=== PATIENT | male | born 1950 | race Caucasian/White ===

== ENCOUNTER 2017-11-15 06:15 | Day surgery (SDC) | payer BC, OTHER ==
[2017-11-09 14:11] VITALS: BMI 23.8
[2017-11-15] MEDS ORDERED: PROPOFOL 20 ML ONE ×11 (07:03→10:26)
[2017-11-15] MEDS ORDERED: ePHEDrine SULFATE 50 MG/1 ML AMPULE ONE (07:03)
[2017-11-15] MEDS ORDERED: SUCCINYLCHOLINE CHLORIDE 200 MG/10 ML VIAL ONE (07:03)
[2017-11-15] MEDS ORDERED: MIDAZOLAM HCL 2 MG/2 ML SINGLE DOSE VIAL ONE ×2 (07:03→07:28)
[2017-11-15] MEDS ORDERED: ROCURONIUM BROMIDE 50 MG/5 ML VIAL ONE (07:03)
[2017-11-15] MEDS ORDERED: HYDROmorphone HCL/PF 1 MG/ML VIAL (FOR PYXIS CHARGING ONLY) ONE ×2 (07:03)
[2017-11-15] MEDS ORDERED: LIDOCAINE HCL/PF 2% SDV 5ML VIAL ONE (07:04)
[2017-11-15] MEDS ORDERED: DEXAMETHASONE SOD PHOSPHATE 4 MG/1 ML VIAL ONE (07:04)
[2017-11-15] MEDS ORDERED: ONDANSETRON 4 MG/2 ML VIAL ONE (07:04)
[2017-11-15] MEDS ORDERED: PHENYLEPHRINE HCL 10 MG/1 ML SINGLE DOSE VIAL ONE (07:04)
[2017-11-15] MEDS ORDERED: LIDOCAINE 1%/EPI 1:100000 (20 ML MULTI DOSE VIAL) ONE (07:24)
[2017-11-15] MEDS ORDERED: BUPIVACAINE HCL/PF (5 MG/ML) 30 ML VIAL IJ ONE (07:28)
[2017-11-15] MEDS ORDERED: DEXAMETHASONE SOD PHOSPHATE/PF 10 MG/ML SDV ONE (07:28)
[2017-11-15] MEDS ORDERED: ALBUTEROL SO4 0.083% IH SOL 2.5 MG/3 ML VIAL.NEB. NEB ONE ×2 (07:43→13:05)
[2017-11-15] MEDS ORDERED: IPRATROPIUM BR 0.02% 0.5 MG/2.5 ML VIAL.NEB. NEB ONE (07:43)
[2017-11-15] MEDS ORDERED: THROMBIN (BOVINE) 5,000 UNIT VIAL TP ONE ×2 (07:45→09:41)
--- NOTE | 2017-11-15 08:24 | HP ---
History & Physical Update - History History: No Change - Physical Physical: No Change - Assessment Assessment: No Change - Plan Plan: No Change (full note from Dr. Farr on 10/16/2017 and seen by his [facility] doctor Yanci Jimenez on 10/29/2017. THis am he is wheezing, given a nebulizer treatment)
[2017-11-15] MEDS ORDERED: DESFLURANE GAS 240 ML BOTTLE IH ONE (08:27)
[2017-11-15] MEDS ORDERED: LACTATED RINGERS SOLUTION 1,000 ML IV SCH ×2 (09:45→11:15)
[2017-11-15] MEDS ORDERED: ONDANSETRON 4 MG/2 ML VIAL IVPUSH PRN ×2 (09:45→11:01)
[2017-11-15] MEDS ORDERED: ACETAMINOPHEN 1000 MG/100 ML VIAL (NON FORMULARY) IVPB SCH (09:45)
[2017-11-15] MEDS ORDERED: ACETAMINOPHEN INJECTION 100 ML IVPB ONE (11:00)
[2017-11-15] MEDS ORDERED: oxyCODONE HCL 5 MG TABLET PO PRN (11:01)
[2017-11-15] MEDS ORDERED: morphine CARPU-JECT 4 MG/1 ML DISP.SYRIN IVPUSH PRN (11:01)
[2017-11-15] MEDS ORDERED: diazePAM 5 MG TABLET PO PRN (11:05)
--- NOTE | 2017-11-15 12:36 | OP ---
DATE OF OPERATION: 11/15/2017 PREOPERATIVE DIAGNOSIS: Cervical stenosis, C3-C4, C4-C5. POSTOPERATIVE DIAGNOSIS: Cervical stenosis, C3-C4, C4-C5. PROCEDURE PERFORMED: 1. Anterior cervical discectomy and fusion, C3-C4, C4-C5. 2. Placement of instrumentation, C3- C5. SURGEON: Cali Jay MD TAXATION CONSULTANT: NICK Rock ESTIMATED BLOOD LOSS: 50 mL. INTRAVENOUS FLUIDS: Per Anesthesia. ANESTHESIA: General. COMPLICATIONS: There were none. DISPOSITION: Patient brought to the PACU in stable condition. INDICATIONS FOR SURGERY: The patient is a 67-year-old gentleman who has been suffering from pain from his neck down his arm. X-rays and MRI were completed, which noted that he had cervical stenosis at C3-C4 and C4-C5. He had gone through an exhaustive course of treatment which included medications, physical therapy, as well as injections. Unfortunately, his pain continued to persist despite all this. At this point, risks, benefits, and alternatives were discussed, and the patient consented to surgery. OPERATIVE NOTE: The patient was brought into the operating room by the anesthesia staff. After appropriate patient identification was performed, general anesthesia was administered. Appropriate anesthetic lines were placed. SCDs were placed. Neuromonitoring leads were attached. Patient was placed supine on the OR bed with his arms tucked in at the sides. A needle was taped onto his neck to caleb off the C3-C4 level, and x-rays taken to confirm this was correct. Needle was removed, and 10 mL of lidocaine with epinephrine was injected into his neck at this time. His neck was prepped and draped in the usual sterile manner. At this point, a time-out was completed. An incision was made in the left side of his neck. Dissection was carried down to the platysma. The platysma was cut in line with the skin incision. Next, the interval between the sternocleidomastoid as well as strap muscles was developed. Next the interval between the carotid sheath an tracheal esophagus were developed. A needle was placed into the C3-C4 disc, and x-ray was taken to confirm this was correct. Needle was removed, and Salem pins were placed into the body of C3 and C5. The longus colli muscles were elevated off, and retractor blades were placed in. A knife was used to incise the disc, and distraction was applied. At this point, the microscope was brought in. Using a series of pituitaries, Kerrrisons, and curettes, the discs at C3-C4 and C4-C5 were cut and removed. The end-plates were decorticated. The cages filled with bone graft were placed into C3-C4 and C4-C5. Screws were inserted into the bodies of C3, C4, and C5. Salem pins were removed. AP and lateral x-rays confirmed the instrumentation to be in good position. Final tightening was performed. AP and lateral x-rays confirmed the instrumentation to be in good position. A drain was placed. The platysma was closed with a 2-0 Vicryl suture. Skin was closed with a 3-0 Monocryl suture. Dermabond was applied. Steri-Strips were applied. Sterile dressings were applied. Patient was placed supine on the OR bed, extubated in the OR, and brought to the PACU in stable condition. Chana [id number] MTDD
[2017-11-15] MEDS ORDERED: oxyCODONE HCL 5 MG TABLET ONE (12:45)
[2017-11-15] MEDS: oxyCODONE HCL 5 MG TABLET PO PRN ×2 (12:50→21:29)
[2017-11-15] MEDS ORDERED: traMADol HCL 50 MG TABLET ONE (13:49)
[2017-11-15] MEDS: traMADol HCL 50 MG TABLET PO SCH ×2 (13:53→20:00)
[2017-11-15] MEDS: TIOTROPIUM BROMIDE 18 MCG CAPSULES IH SCH (14:57)
[2017-11-15] MEDS: ALBUTEROL SO4 0.083% IH SOL 2.5 MG/3 ML VIAL.NEB. NEB SCH ×2 (14:58→19:00)
--- NOTE | 2017-11-15 15:27 | OP ---
Operative Note - Note: Operative Date: 11/15/17 Pre-Operative Diagnosis: cervical stenosis Operation: anterior cervical discectomy with fusion of C3-4 and C4-5 Surgeon: Cali Jay Insurance Compliance Analyst: Isabela Kim Anesthesiologist/FIRE MARSHAL: Hellen Evans Anesthesia: General Estimated Blood Loss (mls): 20 Fluid Volume Replaced (mls): 500 Operative Report Dictated: Yes
--- NOTE | 2017-11-15 15:28 | SURG ---
Surgery Cloth Shrinking Tester Note Cloth Shrinking Tester: Isabela Kim PA-C Date of Service: 11/15/17 Diagnosis: cervical stenosis Procedure: anterior cervcial disectomy with fusion of C3-4 and C4-5 I was present for the entirety of the operative procedure. For further detail, please refer to operative report. Visit type - Case Type Case Type: Scheduled - Emergency Emergency Visit: No - New patient This patient is new to me today: Yes Date on this admission: 11/15/17
[2017-11-15] MEDS ORDERED: PT OWN MED DRAWER 7, Y5N ONE (15:41)
[2017-11-15] MEDS: diazePAM 5 MG TABLET PO SCH ×2 (15:43→23:23)
[2017-11-15] MEDS: CEFAZOLIN 1 GM/D5W 1 GRAM/50 ML BAG IVPB SCH (17:00)
[2017-11-15] MEDS: ACETAMINOPHEN 1000 MG/100 ML VIAL (NON FORMULARY) IVPB SCH ×2 (17:55→23:23)
[2017-11-15] MEDS: DEXAMETHASONE SOD PHOSPHATE 4 MG/1 ML VIAL IVPB SCH (20:00)
[2017-11-15] MEDS ORDERED: DEXAMETHASONE SOD PHOSPHATE 4 MG/1 ML VIAL IVPB SCH (20:00)
[2017-11-16] MEDS: oxyCODONE HCL 5 MG TABLET PO PRN ×2 (01:36→06:38)
[2017-11-16] MEDS: ALBUTEROL SO4 0.083% IH SOL 2.5 MG/3 ML VIAL.NEB. NEB SCH ×2 (01:37→06:30)
[2017-11-16] MEDS: traMADol HCL 50 MG TABLET PO SCH ×2 (01:37→08:24)
[2017-11-16] MEDS: CEFAZOLIN 1 GM/D5W 1 GRAM/50 ML BAG IVPB SCH (01:44)
[2017-11-16] MEDS: BUDESONIDE/FORMETEROL FUMARATE 160/4.5 mcg INHALER IH SCH ×2 (01:48→09:54)
[2017-11-16] MEDS: ACETAMINOPHEN 1000 MG/100 ML VIAL (NON FORMULARY) IVPB SCH (06:30)
[2017-11-16 06:47] VITALS: PULSE 71; TEMP 98.7
[2017-11-16] MEDS: diazePAM 5 MG TABLET PO SCH (08:24)
[2017-11-16] MEDS: DEXAMETHASONE SOD PHOSPHATE 4 MG/1 ML VIAL IVPB SCH (08:31)
[2017-11-16] MEDS: TIOTROPIUM BROMIDE 18 MCG CAPSULES IH SCH (09:53)
[2017-11-16] MEDS ORDERED: BUDESONIDE/FORMETEROL FUMARATE 160/4.5 mcg INHALER IH SCH (10:00)
--- NOTE | 2017-11-16 10:13 | DS ---
Physical Exam: SUBJECTIVE: Patient seen and examined this am. No complaints of CP/SOB. Tolerated clears wihtout difficulty, no problems swallowing just painful. OBJECTIVE: Vital Signs Temperature 98.7 F 11/16/17 06:00 Pulse Rate 71 11/16/17 06:00 Respiratory Rate 18 11/16/17 06:00 Blood Pressure 148/92 11/16/17 06:00 O2 Sat by Pulse Oximetry (%) 94 L 11/16/17 06:00 CHINO-5ml overnight, serosangreous PHYSICAL EXAM GENERAL: The patient is awake, alert, and fully oriented, in no acute distress. HEAD: Normal with no signs of trauma. NECK: Trachea midline,no stridor, inc c/d/i with steri-strips. No masses or ecchymosis. CHINO removed intact without difficulty. New 4x4 gazue/tegaderm dressing applied. LUNGS: Breath sounds equal, mild expiratory wheezes b/l. HEART: Regular rate and rhythm, S1, S2 without murmur, rub or gallop. ABDOMEN: Soft, nontender, nondistended, normoactive bowel sounds, no guarding, no rebound, no hepatosplenomegaly, no masses. EXTREMITIES: 2+ pulses, warm, well-perfused, no edema. NEUROLOGICAL: Normal speech, gait not observed. Medical Office Administrator strength unchanged from prior to OR, decreased on the left. LE b/l dorsi/plantar flexion 5/5. PSYCH: Normal mood, normal affect. HOSPITAL COURSE: Date of Admission:11/15/17 Date of Discharge: 11/16/17 The patient was admitted to the Med-Surg Unit after an elective repair of their cervical stenosis. Now, s/p ACDF of C3-4 and C4-5. The day of surgery, the patient ambulated the hallways with assistance. Narcotic and non-narcotic pain management control was achieved with an oral and IV approach. POD #1, the surgical drain was removed fully intact and without incident. An xray was obtained and confirmed hardware placement at C3 thru C5, no fractures or dislocations. Henna-operative IV ABX were administered. DVT prophylaxis was achieved with SCDs and early ambulation. The patient ambulated with Physical Therapy and home PT servcies were obtained upon discharge. Narcotic scripts and or muscle relaxants were checked with [place] LCSW prior to escibe. The discharge instructions and an oral pain management plan were reviewed with the patient. All questions answered. Above plan discussed with Dr. Jay and agreed. Minutes to complete discharge: 30 Visit type - Case Type Case Type: Scheduled - Emergency Emergency Visit: No - New patient This patient is new to me today: No
[2017-11-16 10:17] VITALS: BP 132/78
--- NOTE | 2017-11-16 10:29 | PN ---
Progress Note (short form) - Note Progress Note: Anesthesia Post-Op: 67 yo M POD#1 s/p ACDF and general anesthesia S: Patient doing well. Minimal pain. Tolerating PO. Ambulating with walker. no N /V O: VSS, alert, no distress, sitting in chair A/P: No issues from anesthesia. Encouraged incentive spirometer and ambulation. Counseled on importance of smoking cessation.
--- NOTE | 2017-11-19 16:18 | PATH ---
Surgical Pathology Report Patient Name: YOUNG WALKER [facility]. Rec. #: [id number] /Age/Gender: 1950 (Age: 67) / M Account: [id number] Location: [facility] Taken: 11/15/2017 Received: 11/15/2017 Reported: 11/19/2017 Physicians: Cali Jay M.D. Specimen(s) Received DISC C3/4, C4/5 Clinical History Cervical stenosis Final Diagnosis DISC, C3-4, C4-5, DISCECTOMY: INTERVERTEBRAL DISC TISSUE. Electronically Signed Mitra Bruner M.D. Gross Description Received in formalin labeled "disc C3/4, C4/5," is a 2.0 x 1.3 x 0.2 cm aggregate of jean fragments of fibrocartilaginous tissue. The specimen is entirely submitted in one cassette. /11/16/2017 saudi11/16/2017
== END 2017-11-16 13:30 | disposition home or self-care (01) ==
LOC: FASU 06:15 → FM/S 14:09 → FASU 11-16 13:30
PROVIDERS: ATTEND Orthopaedic Surgery Orthopaedic Surgery of the Spine
PROC: 0RG10A0 Fusion of Cervical Vertebral Joint with Interbody Fusion Device, Anterior Approach, Anterior Column, Open Approach (ICD-10-PCS; 2017-11-15)
PROC: 0RG10K0 Fusion of Cervical Vertebral Joint with Nonautologous Tissue Substitute, Anterior Approach, Anterior Column, Open Approach (ICD-10-PCS; 2017-11-15)
PROC: 0RB30ZZ Excision of Cervical Vertebral Disc, Open Approach (ICD-10-PCS; principal; 2017-11-15 09:21)
DX: M48.02 Spinal stenosis, cervical region (principal)
CPT/HCPCS: 72050-TC-FY; 76000-TC-FY; 88304-TC; 94010; 94640; 94660; 94760; 97116-GP; 97162-GP; J0131